=== PATIENT | female | born 1990 | race Native Hawaiian/Other Pacific Islander ===

== ENCOUNTER 2021-02-28 17:48 | Emergency (ER) | payer OTHER ==
[~2021-02-28] VITALS: Ht 147.3 cm; Wt 49.9 kg
[2021-02-28 18:00] VITALS: TEMP 99.4
[2021-02-28 18:57] LABS: PLATELET COUNT 187 K/uL (152-353)
[2021-02-28 19:13] LABS: POTASSIUM 3.6 mmol/L (3.6-5.2)
[2021-02-28 20:40] VITALS: BP 125/78
== END 2021-02-28 20:40 | disposition home or self-care (01) ==
LOC: ED 17:48
PROVIDERS: Emergency Medicine Emergency Medical Services
DX: L03.116 Cellulitis of left lower limb (principal)
CPT/HCPCS: 36415; 80053; 85027; 96372; 99283; J1815

== ENCOUNTER 2022-01-10 22:18 | Emergency (ER) | payer OTHER ==
[~2022-01-10] VITALS: Ht 147.3 cm; Wt 47.6 kg
[2022-01-10 23:22] VITALS: BP 119/75; TEMP 98.5
== END 2022-01-10 23:22 | disposition home or self-care (01) ==
LOC: ED 22:18
DX: R51.9 Headache, unspecified (principal); M54.2 Cervicalgia; M54.89 Other dorsalgia; R07.81 Pleurodynia; M25.512 Pain in left shoulder; Y04.2XXA Assault by strike against or bumped into by another person, initial encounter; Y92.89 Other specified places as the place of occurrence of the external cause
CPT/HCPCS: 96372; 99283; J1885